=== PATIENT | female | born 1985 | race Caucasian/White ===

== ENCOUNTER → 2019-02-07 | Outpatient (CLI) | payer OTHER, SELFPAY ==
--- NOTE | 2019-02-07 13:01 | CT_ITS ---
STUDY: CT LEFT FOOT REASON FOR EXAM: Clubfoot. TECHNIQUE: Thin section transaxial imaging of the foot was obtained, with sagittal and coronal reconstructed images. Individualized dose optimization techniques were used for this CT. COMPARISON: None. FINDINGS: There is mild hypoplasia of the talar dome (sagittal reconstructions 18-22). The tibiotalar articular space is well-maintained. There is a small ossicle adjacent to a mildly hypoplastic medial malleolus (coronal reconstruction 53). There is a cyst in the medial body of the talus (coronal reconstruction 53) measuring 0.5 cm in diameter. There is hindfoot valgus deformity (coronal reconstruction 61). There is joint space narrowing of the posterior medial aspect of the posterior subtalar articulation (sagittal reconstructions 17-20). Normal visualized talonavicular, calcaneocuboid, tarsal and tarsometatarsal articulations. There is a notch-like deformity at the dorsal aspect of the medial cuneiform (sagittal reconstructions 15, 16). Normal metatarsi. Normal metatarsophalangeal joint of the great toe. Normal tibial and fibular sesamoid bones. Normal interphalangeal joint of the great toe. Normal visualized phalanges of the great toe. Normal second through fifth metatarsophalangeal joints. Normal visualized interphalangeal joints and visualized phalanges of the lesser toes. The soft tissue structures are unremarkable. 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 Hindfoot valgus deformity. Joint space narrowing of the posterior medial aspect of the posterior subtalar articulation. Electronically Signed: Anil Wilson MD at 10:00 EDT Tel , Service support ,
== END | disposition home or self-care (01) ==
LOC: CT 12:58
PROVIDERS: Referring Provider Orthopaedic Surgery; Visit Provider Orthopaedic Surgery
DX: Q66.89 Other specified congenital deformities of feet (principal)
CPT/HCPCS: 73700

== ENCOUNTER → 2020-09-22 16:41 | Outpatient (CLI) | payer OTHER, SELFPAY ==
[2016-02-05 18:52] VITALS: BMI 32.5
[2020-09-22 17:55] LABS: NATERA MAILED SPECIMEN
== END ==
DX: Z31.430 Encounter of female for testing for genetic disease carrier status for procreative management (principal)

== ENCOUNTER 2021-07-10 10:00 | Inpatient (IN) | payer OTHER, MEDICAID, SELFPAY ==
[2021-07-10] VITALS (18 sets, daily range): BP systolic 98–131; BP diastolic 51–79; PULSE 60–94; RESP 16–18; TEMP 36.1–36.7; O2SAT 94–98; BMI 40.0
--- NOTE | 2021-07-10 | PLAC_PTH ---
PATIENT: GABI JEFF LOC: WP U#:[id number] AGE/SX: 35/F ROOM: WP007 RE07/10/[address]: Dr. Latoya Maldonado MD : 1985 BED: 1 DIS: 07/13/2021 SPEC #: [id number] RECD: 07/13/21 08:44 STATUS: CHEVY REKelsie #: [id number] TANIA: 07/10/21 00:[address]: Latoya Maldonado DEPT: SURGICAL PATHOLOGY RECD BY: Sarwat Barfield ENTERED: 07/13/21 08:44 SP TYPE: PLACENTA OTHR DR: No Primary Care Phys Tissues: Placenta, NOS Procedures: Surgery Specimen Level V HEADER OPERATION: Primary section PRE-OP DIAGNOSIS: Twins TISSUE SUBMITTED: Placenta MICROSCOPIC DIAGNOSIS Dichorionic diamniotic twin placenta: Placenta designated A (383 gm): Umbilical cord ? trivascular with no inflammation. Peripheral membranes ? no pathologic change. Placental disc ? Mild Maria Ines-Jim change and intravillous congestion. Placenta designated B (386 gm): Umbilical cord ? trivascular with no inflammation. Peripheral membranes ? no pathologic change. Placental disc ? Mild Maria Ines-Jim change and intervillous congestion. AM:violetta 07/14/2021 MICROSCOPIC DESCRIPTION Slides are reviewed. GROSS DESCRIPTION SPECIMEN: TWIN PLACENTA / CLINICAL INFORMATION: A. Weight: A ? 2.16 kg; B ? 2.445 kg B. Gestational Age: 37 weeks C. Sex: A ? Male, B - Male Received is a twin placenta consisting of two placental discs, two membranous sacs and two umbilical cords. The placentas are not identified as A or B. One of the umbilical cords shows a clamp and designed placenta A. Dividing membranous septum is present predominantly on placenta A. PLACENTA A: (with clamp) PLACENTAL WEIGHT (POST FIXATION): 383 gm PLACENTAL DIMENSIONS: 20 x 15 x 2.5 cm PLACENTAL SHAPE: Usual ovoid PLACENTAL WEIGHT FOR GESTATIONAL AGE: Within 10-99th percentile. MEMBRANES - Present A. Insertion: Marginal B. Site of rupture from edge: Fragmented, distance of rupture cannot be assessed. C. Color of membrane: Hull-mobley D. Abnormalities: None UMBILICAL CORD - Present A. Color: Hull-mobley B. Insertion: Paracentral C. Length: 41 cm D. Diameter: 1.4 cm E. Number of vessels: Three F. Abnormalities: None PLACENTAL DISC - Present A. Color of surface: Hull-mobley B. surface abnormalities: None C. Maternal cotyledons: Intact with minimal tears D. Attached retro placental clot: No clot E. Cut surface: Dark red and spongy F. Lesions: None G. Separate clot: Absent PLACENTA B: PLACENTAL WEIGHT (POST FIXATION): 386 gm PLACENTAL DIMENSIONS: 18 x 18 x 2.5 cm PLACENTAL SHAPE: Usual ovoid PLACENTAL WEIGHT FOR GESTATIONAL AGE: Within 10-99th percentile. MEMBRANES - Present A. Insertion: Paracentral B. Site of rupture from edge: 9 cm from edge of placental disc C. Color of membrane: Hull-mobley D. Abnormalities: The membranes show focal area of whitish plaque. UMBILICAL CORD - Present A. Color: Hull-mobley B. Insertion: Marginal C. Length: 41 cm D. Diameter: 1.3 cm E. Number of vessels: Three F. Abnormalities: None PLACENTAL DISC - Present A. Color of surface: Hull-mobley B. surface abnormalities: None C. Maternal cotyledons: Intact with minimal tears D. Attached retro placental clot: No clot E. Cut surface: Dark red and spongy F. Lesions: None G. Separate clot: Absent SECTIONS SUBMITTED: 11 cassettes 1 - Dividing membranous septum, 2-6 - placenta A (2 - membrane roll, 3 - umbilical cord, end inked black, 4-6 - body of the placenta including maternal and surfaces), 7-11 - placenta B (7 - membrane roll, 8 - umbilical cord, end inked black, 9-11 - body of the placenta including maternal and surfaces). SJ:violetta 07/13/2021 TC:5 CPT: 40336 x2
[2021-07-10] MEDS: Acetaminophen 500 MG Tablet 1000 MG PO ×3 (10:54→22:44)
[2021-07-10] MEDS: Lactated Ringers 1,000 ML 999 ML IV (10:56)
[2021-07-10 11:11] LABS: Absolute Lymphocyte Count 1.94 X10^3/uL (0.83-4.51); Absolute Neutrophil Count 7.2 X10^3/uL (2.0-7.7); Basophil# 0.03 X10^3/uL; Basophil% 0.3 % (0-1); Eosinophil# 0.18 X10^3/uL; Eosinophils% 1.8 % (0-5); Hematocrit 34.7 % (37-47); Hemoglobin 12.1 g/dL (12.0-15.0); Lymphocyte # 1.94 X10^3/ul (0.83-4.51); Lymphocyte % 19.4 % (19-41); Mean Corp Hgb Conc 34.9 g/dL (32-36); Mean Corpuscular Hgb 30.2 pg (27.0-32.0); Mean Corpuscular Volume 86.5 fL (81-99); Mean Platelet Vol. 12.2 fl (6.2-12.0); Monocyte# 0.65 X10^3/uL; Monocyte% 6.5 % (0-10); NRBC Flagged by Analyzer 0 % (0-5); Neutrophil # 7.16 X10^3/uL (2.7-7.7); Neutrophil % 71.6 % (47-70); Platelet Count 174 K/mm3 (150-450); RBC Distribution Width CV 14.1 % (11.6-14.6); RBC Distribution Width SD 43.1 fl (35.1-43.9); Red Blood Count 4.01 M/mm3 (4.2-5.4)
[2021-07-10] MEDS: Lactated Ringers 1,000 ML 150 ML IV (11:54)
[2021-07-10] MEDS: Sodium Citrate/Citric Acid 30 ML UDC PO (11:54)
--- NOTE | 2021-07-10 12:18 | PCM.HP.OB ---
HPI - General General Date of Admission: 07/10/21 Date of Service: 07/10/21 Chief Complaint: twins, breech HPI Narrative GABI JEFF, is a 35-year-old 1 para 0 at 37+ weeks with EDC of 07/30/2021 who presents for primary section due to breech twins. She denies any vaginal bleeding or leaking of fluid. She is had good movement. is a fertility . She has dichorionic diamniotic twins. Growth has been normal. was complicated to date by hypothyroidism and maternal obesity and history of depression. Maternal Data Information Final HOLLY: 07/30/21 Gestational age: 37 05/22 [facility] Medical History (Updated 07/10/21 @ 12:[address] Latoya Maldonado MD) Anxiety Carpal tunnel syndrome Club foot Depression Thyroid disorder Home Medications aspirin [Aspir-81] 81 mg PO DAILY 07/10/21 [History Last Taken 07/07/21 12:00] levothyroxine [Synthroid] 25 mcg PO DAILY 07/10/21 [History Last Taken 07/09/21 08:00] [id number] [] 1 tab PO DAILY 07/10/21 [History Last Taken 07/09/21 23:00] Allergy/AdvReac Type Severity Reaction Status Date / Time naproxen AdvReac Hives Verified 07/10/21 10:17 Social History Smoking Status: Never smoker History Elective abortions Hx Para 0 Spontaneous abortions Hx # Term Pregnancies Ectopic pregnancies Hx # Pregnancies Multiple births # of living children ROS Constitutional Constitutional: Denies fatigue, fever(s) or malaise Eyes Eyes: Denies change in vision ENT HEENT: Denies dizziness or headache(s) Cardiovascular Cardiovascular: Denies chest pain, dyspnea or lightheadedness Respiratory/Chest Respiratory/Chest: Denies cough or dyspnea Gastrointestinal Gastrointestinal: Denies change in bowel habits Genitourinary Genitourinary: Denies burning urination or genital lesions Integumentary Integumentary: Denies rash Neurologic Neurologic: Denies confusion, dizziness, headache(s), numbness or weakness Vital Signs Vital Signs Vital Signs: 07/10/21 11:25 Temperature 97.0 F L Temperature Source Temporal Pulse Rate 88 Respiratory Rate 16 Blood Pressure 113/77 Blood Pressure Mean 89 Blood Pressure Source Monitor Blood Pressure Position Semi-Fowlers Blood Pressure Location Left Arm Pulse Ox 97 Oxygen Delivery Method Room Air Weight Weight: 122.9 kg Body Mass Index (BMI) 40.0 Physical Exam Const alert and no apparent distress General Appearance: cooperative HEENT normocephalic Resp normal respiratory effort Cardio regular rate GI soft to palpation GI Narrative: gravid, nontender, appropriate for gestational age Extremity no calf tenderness General Extremity: edema Skin no wounds Rashes: No rashes noted Psych activity/motor behavior normal Labs Labs Labs: Blood Type Pending Antibody Screen Pending Hct 34.7 % (37-47) L Hgb 12.1 g/dL (12.0-15.0) Assessment & Plan (1) Dichorionic diamniotic twin gestation: (2) 37 weeks gestation of : (3) Advanced maternal age (AMA) in : (4) Maternal obesity syndrome in third trimester: (5) BMI 40.0-44.9, adult: (6) Breech presentation of fetus: (7) Supervision of high risk in third trimester:
--- NOTE | 2021-07-10 12:51 | OP.PCM_ITS ---
Assessment & Plan (1) Supervision of high risk in third trimester: (2) Breech presentation of fetus: (3) BMI 40.0-44.9, adult: (4) Maternal obesity syndrome in third trimester: (5) Advanced maternal age (AMA) in : (6) 37 weeks gestation of : (7) Dichorionic diamniotic twin gestation: Maternal Data Information Final HOLLY: 07/30/21 Gestational age: 37 1/7 Details Operative Information Date of Procedure: 07/10/21 Pre-Operative Diagnosis: di/di twins, breech/breech, 37 weeks Post-Operative Diagnosis: same Classification: Scheduled Procedure Type: low transverse account executive sales representative #1: Cora Alarcon Type of Anesthesia: Spinal Anesthesiologist: Zeferino Lee Special Medications: durmamorph Antibiotic Given: Ancef 3 grams IV x1 Drain: Chavez to straight drain Estimated Blood Loss: 900 Fluids Replaced: 1000 Procedure Start Time: 12:25 Time of Delivery: 12:27 Findings Description of Procedure: The patient was taken to the operating room. She was prepped and draped in the dorsal supine position with a leftward tilt. A Pfannenstiel skin incision was made approximately 2 cm above the symphysis pubis and carried through to underlying layer fascia with blunt dissection. The fascia was incised incised in the midline and extended laterally with blunt dissection. The rectus muscles were in the midline and the peritoneum was entered bluntly. The peritoneal incision was stretched and the bladder blade was placed. The uterine incision was made in a low transverse fashion with the scalpel and extended superiorly and inferiorly with blunt dissection. The amniotic membranes were ruptured bluntly and clear amniotic fluid returned. The first baby's feet were brought out through the incision. The baby was turned back up. A towel was placed around the baby's abdomen. The arms were swept out individually. A finger was placed in the baby's mouth and with gentle fundal pressure the head was delivered easily. The mouth and nose were bulb suctioned as the cord was clamped and cut and the was handed off to waiting nursing staff. The second baby's feet were grasped and the amniotic membranes were ruptured for clear fluid. The feet were brought out through the incision and the baby was turned back up. A towel was placed around the baby's abdomen and arms were swept out individually and the head delivered with gentle fundal pressure and traction on the maxilla. The mouth and nares were bulb suction as cord was clamped and cut and the baby was handed off to the waiting nursing staff. The placenta was delivered with fundal massage and gentle traction in the standard fashion. The uterus was exteriorized and cleared of all clots and debris. The cervix was dilated with a ring forcep. The uterine incision was closed with #1 Vicryl in a running locked fashion. A second layer of the same suture was used in an imbricating fashion. The incision was examined and was found to be hemostatic. The uterus was placed back into the peritoneal cavity and hemostasis was again confirmed. The rectus muscles were examined and any bleeding was Bovie cauterized. The parietal peritoneum and rectus muscles were closed en bloc with an 0 Vicryl running suture. The surgical teams outer gloves were then changed. The rectus fascia was examined and any bleeding was Bovie cauterized and the rectus fascia was closed with #1 PDS suture in a running standard fashion. The subcutaneous tissue was examining and any bleeding was Bovie cauterized. The subcutaneous tissue was reapproximated with 3-0 Vicryl suture. The skin was closed in a subcuticular fashion by the RIDING INSTRUCTOR with me present in the labor and delivery suite. I performed the remainder of the procedure with assistance. All sponge, lap, and needle counts were correct. The patient was taken to her room for recovery in a stable condition. Amniotic Membrane Rupture Type: Artificial Amniotic Fluid Description: Clear Placental Delivery Description: Expressed Placenta Disposition: Sent to Pathology Cord Vessel Description: 3 Vessels Cord Entanglement: None Infant A Gender: Male (Zeferino 5lb 4 oz) (1 minute): 9 (5 minute): 9 Delayed Cord Clamping: Yes Complications Complications: none Baby B Information Amniotic Membrane Rupture Type: Artificial Presentation: Footling Breech Operative Information Mode of Delivery: Cord Vessel Description: 3 Vessels Cord Entanglement: None B gender: Male (Ernesto 5lb 10 oz delivery time 1229) (1 minute): 9 (5 minute): 9 Delayed Cord Clamping: No
[2021-07-10] MEDS: Oxytocin 30 units/NS 500 ml 30 UNITS/500 ML IV.SOLN 167 UNITS IV (13:34)
[2021-07-10] MEDS: 0.9% Saline Lock 10 ML Syringe IV ×2 (14:19→23:28)
[2021-07-10] MEDS: Ketorolac 30 MG/ML Syringe IV ×2 (14:19→23:28)
[2021-07-10 15:22] LABS: Pathology Specimen OB SEE PATHOLOGY REPORT
--- NOTE | 2021-07-10 19:41 | NURSING ---
this RN has reviewed and agrees with all charting by SN Brittanie
[2021-07-10] MEDS: Lactated Ringers 250 ML 999 ML IV (20:45)
[2021-07-10] MEDS: Lactated Ringers 1,000 ML 100 ML IV (20:55)
[2021-07-10] MEDS: Enoxaparin 40 MG/0.4 ML Syringe SC (23:38)
[2021-07-11] VITALS (7 sets, daily range): BP systolic 108–121; BP diastolic 52–69; PULSE 71–76; RESP 16–18; TEMP 36.3–37.2; O2SAT 94–97
[2021-07-11] MEDS: Ketorolac 30 MG/ML Syringe IV (05:02)
[2021-07-11] MEDS: Levothyroxine 25 MCG TABLET PO (05:02)
[2021-07-11] MEDS: Acetaminophen 500 MG Tablet 1000 MG PO ×4 (05:02→23:43)
[2021-07-11 05:20] LABS: Hematocrit 33.3 % (37-47); Hemoglobin 11.7 g/dL (12.0-15.0); Mean Corp Hgb Conc 35.1 g/dL (32-36); Mean Corpuscular Hgb 30.8 pg (27.0-32.0); Mean Corpuscular Volume 87.6 fL (81-99); Mean Platelet Vol. 11.5 fl (6.2-12.0); Platelet Count 155 K/mm3 (150-450); RBC Distribution Width CV 14.1 % (11.6-14.6); White Blood Count 13.4 K/mm3 (4.4-11.0)
[2021-07-11] MEDS: Enoxaparin 40 MG/0.4 ML Syringe SC (10:27)
[2021-07-11] MEDS: Senna/Docusate Sodium 1 Tablet PO (10:27)
--- NOTE | 2021-07-11 10:47 | PCM.PN.OB ---
Subjective Subjective Patient seen at bedside. Sitting in recliner chair. Reports minimal pain. Has voided without difficulty. Denies headache, dizziness, SOB or CP. twins with support from . Patient's mother at bedside and is support person. Objective Data Objective Data Vital Signs: Vital Signs Temp Pulse Resp BP Pulse Ox 97.8 F 75 16 108/52 L 94 07/11/21 08:12 07/11/21 08:12 07/11/21 08:12 07/11/21 08:12 07/11/21 08:12 Oxygen Delivery Method Room Air Weight: 270 lb 15.17 oz Body Mass Index (BMI) 40.0 Intake & Output: Intake and Output for Last 24 Hours 07/09/21 07/10/21 07/11/21 23:59 23:59 23:59 Intake Total 3557.5 / 3557.5 Output Total 750 / 750 200 / 200 Balance 2807.5 / 2807.5 -200 / -200 Lab / Micro Data Result Diagrams: 07/11/21 05:10 Labs: Laboratory Results - last 24 hr 07/10/21 10:50: WBC 10.0, RBC 4.01 L, Hgb 12.1, Hct 34.7 L, MCV 86.5, MCH 30.2, MCHC 34.9, RDW Std Deviation 43.1, RDW Coeff of Katalina 14.1, Plt Count 174, MPV 12.2 H, Immature Gran % (Auto) 0.400, Neut % (Auto) 71.6 H, Lymph % (Auto) 19.4, Hancock % (Auto) 6.5, Eos % (Auto) 1.8, Baso % (Auto) 0.3, Absolute Neuts (auto) 7.2, Absolute Lymphs (auto) 1.94, Nucleated RBC % 0 07/10/21 10:50: Blood Type O POSITIVE, Antibody Screen NEGATIVE 07/11/21 05:10: WBC 13.4 H, RBC 3.80 L, Hgb 11.7 L, Hct 33.3 L, MCV 87.6, MCH 30.8, MCHC 35.1, RDW Std Deviation 44.0 H, RDW Coeff of Katalina 14.1, Plt Count 155, MPV 11.5 ROS Eyes Eyes: Denies blurry vision, change in vision or spots in vision ENT HEENT: Denies dizziness or headache(s) Cardiovascular Cardiovascular: Denies abdominal pain, chest pain or dyspnea Respiratory/Chest Respiratory/Chest: Denies cough, dyspnea, shortness of breath at rest or shortness of breath with exertion Gastrointestinal Gastrointestinal: Denies abdominal pain, diarrhea or vomiting Genitourinary Genitourinary: Denies change in urinary stream, difficulty urinating or dysuria Musculoskeletal Musculoskeletal: Reports none Integumentary Integumentary: Denies rash Neurologic Neurologic: Denies dizziness, headache(s), memory loss or weakness Physical Exam Narrative Dressing is dry and intact Const alert and no apparent distress General Appearance: cooperative and comfortable Exam Limitations: no limitations HEENT normocephalic Eyes General Eye: normal appearance of both eyes Neck full ROM General: normal visual inspection Chest Chest: symmetrical chest wall rise Resp normal respiratory effort and normal air movement Effort and Inspection: symmetric chest movement Cardio regular rate and regular rhythm GI normal to inspection, nondistended, normoactive bowel sounds Back/Spine normal ROM Extremity no calf tenderness Extremity Narrative: Bilateral 2+ pitting edema in ankles and feet Skin no rashes or lesions noted Neuro CN's II-XII intact bilaterally Psych mental status grossly normal Assessment & Plan (1) BMI 40.0-44.9, adult: (2) Dichorionic diamniotic twin gestation: QUALIFIERS: Trimester: third trimester Qualified Code(s): O30.043 - Twin , dichorionic/diamniotic, third trimester (3) Status post primary low transverse section: (4) Mother currently breast-feeding: PLAN: PO #1 Primary section- Di/Di twins Pain control Routine care Increase ambulation today support Anticipate discharge home tomorrow
[2021-07-11] MEDS: Ibuprofen 600 MG Tablet PO ×2 (14:01→21:09)
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
[2021-07-12 02:15] VITALS: BP 121/73; PULSE 91; RESP 16; TEMP 36.2
[2021-07-12] MEDS: Ibuprofen 600 MG Tablet PO ×4 (04:11→23:00)
[2021-07-12] MEDS: Acetaminophen 500 MG Tablet 1000 MG PO ×4 (05:40→22:59)
[2021-07-12] MEDS: Levothyroxine 25 MCG TABLET PO (05:40)
--- NOTE | 2021-07-12 07:53 | PCM.PN.OB ---
Subjective Subjective Patient seen at bedside. Difficulty with both infants and started supplementing with formula and pumping. Patient is working with department. Difficulty sleeping. Pain is controlled. Ambulating and voiding without difficulty. Lochia minimal. Denies any SOB, CP, headache or dizziness. Desires discharge home tomorrow. Objective Data Objective Data Vital Signs: Vital Signs Temp Pulse Resp BP Pulse Ox 97.2 F L 91 16 121/73 H 95 07/12/21 02:15 07/12/21 02:15 07/12/21 02:15 07/12/21 02:15 07/11/21 14:07 Oxygen Delivery Method Room Air Weight: 270 lb 15.17 oz Body Mass Index (BMI) 40.0 Intake & Output: Intake and Output for Last 24 Hours 07/10/21 07/11/21 07/12/21 23:59 23:59 23:59 Intake Total 3557.5 / 3557.5 Output Total 750 / 750 200 / 200 Balance 2807.5 / 2807.5 -200 / -200 Lab / Micro Data Result Diagrams: 07/11/21 05:10 ROS Eyes Eyes: Denies blurry vision, change in vision or spots in vision ENT HEENT: Denies dizziness or headache(s) Cardiovascular Cardiovascular: Denies abdominal pain, chest pain or dyspnea Respiratory/Chest Respiratory/Chest: Denies cough, dyspnea, shortness of breath at rest or shortness of breath with exertion Gastrointestinal Gastrointestinal: Denies abdominal pain, diarrhea or vomiting Genitourinary Genitourinary: Denies change in urinary stream, difficulty urinating or dysuria Musculoskeletal Musculoskeletal: Reports none Integumentary Integumentary: Denies rash Neurologic Neurologic: Denies dizziness, headache(s), memory loss or weakness Physical Exam Narrative Dressing is dry and intact Const alert and no apparent distress General Appearance: cooperative and comfortable Exam Limitations: no limitations HEENT normocephalic Eyes General Eye: normal appearance of both eyes Neck full ROM General: normal visual inspection Chest Chest: symmetrical chest wall rise Resp normal respiratory effort and normal air movement Effort and Inspection: symmetric chest movement Auscultation: clear to auscultation bilaterally Cardio regular rate and regular rhythm GI normal to inspection, nondistended, normoactive bowel sounds Back/Spine normal ROM Extremity full ROM and no calf tenderness General Extremity: normal exam except as noted Skin no rashes or lesions noted Neuro CN's II-XII intact bilaterally Psych mental status grossly normal Assessment & Plan (1) Mother currently breast-feeding: (2) Status post primary low transverse section: (3) BMI 40.0-44.9, adult: (4) Dichorionic diamniotic twin gestation: QUALIFIERS: Trimester: third trimester Qualified Code(s): O30.043 - Twin , dichorionic/diamniotic, third trimester PLAN: PO #2 Primary C/S- Di/Di twins support Pain control Encourage ambulation Anticipate discharge home tomorrow
[2021-07-12 08:40] VITALS: BP 120/71; PULSE 86; RESP 18; TEMP 36.7; O2SAT 98
[2021-07-12] MEDS: Enoxaparin 40 MG/0.4 ML Syringe SC (10:40)
[2021-07-12] MEDS: Senna/Docusate Sodium 1 Tablet PO (10:42)
[2021-07-12 13:13] VITALS: BP 119/71; PULSE 82; RESP 18; TEMP 36.6; O2SAT 97
--- NOTE | 2021-07-12 15:22 | NURSING ---
Esperanza has been doing well at doing care. She has been working on hard on trying to meet their needs as needed. She switched from putting babes to breast, to now pumping and feeding pumped milk plus similac. She is very attentive about pumping and caring for pump, as well as what to do with pumped milk. She is trying to focus on when to feed infants, and had some difficulty today, as we realized that some nurses are writing when 's fed last, and some are writing when they are do, which is confusing for her. We talked about what works best for her, and she wants the time that they are due to eat written down, and I also wrote down a schedule for her to pump, which should allow for time to ready for feed. She was able to complete her paperwork today, as well as the CPR video- she had not had time to focus on that previously. Pt. was able to dress and comb her hair (which she did tuesday evening), although I believe she hasn't had the chance to shower yet. She is working to try to figure out what works for her and her mom. I have encouraged her to walk in halls as hadn't passed gas yet. She is not doing much walking, but has since reported passing gas. Her mother remains with her as her support person, but her mother tends to fall asleep while holding the baby's, and the babes need to be moved from her arms back to the cribs. I am not sure how much support Esperanza has beyond her parents, as well as a brother that has been in to visit. She reports that her mother will be babysitting for her when she returns to work.
[2021-07-12 21:20] VITALS: BP 131/65; PULSE 84; RESP 18; TEMP 36.2
[2021-07-13 01:35] VITALS: BP 117/54; PULSE 74; RESP 18; TEMP 36.2; O2SAT 96
[2021-07-13] MEDS: Acetaminophen 500 MG Tablet 1000 MG PO ×2 (05:53→12:06)
[2021-07-13] MEDS: Levothyroxine 25 MCG TABLET PO (05:53)
[2021-07-13] MEDS: Ibuprofen 600 MG Tablet PO ×2 (05:53→12:06)
[2021-07-13 08:00] VITALS: BP 132/69; PULSE 87; RESP 24; TEMP 36.2; O2SAT 96
--- NOTE | 2021-07-13 08:06 | PN.OBGYN_ITS ---
Subjective Subjective Doing well per patient and nursing staff. Ambulating and taking PO without difficulty. Voiding and passing flatus. Pain controlled. , services for assistance. Denies headache, visual changes, chest pain, shortness of breath, leg pain or increased bleeding. Lochia normal.Planning D/C home today. Objective Data Objective Data Vital Signs: Vital Signs Temp Pulse Resp BP Pulse Ox 97.1 F L 74 18 117/54 L 96 07/13/21 01:35 07/13/21 01:35 07/13/21 01:35 07/13/21 01:35 07/13/21 01:35 Oxygen Delivery Method Room Air Weight: 270 lb 15.17 oz Body Mass Index (BMI) 40.0 Intake & Output: Intake and Output for Last 24 Hours 07/11/21 07/12/21 07/13/21 23:59 23:59 23:59 Output Total 200 / 200 Balance -200 / -200 Lab / Micro Data Result Diagrams: 07/11/21 05:10 ROS Constitutional Constitutional: Reports systems reviewed and no addt'l complaints, except as documented; Denies headache(s) Eyes Eyes: Denies acute decrease in peripheral vision, blurry vision or change in vision ENT HEENT: Reports systems reviewed and no addt'l complaints, except as documented Cardiovascular Cardiovascular: Denies chest pain or dizziness Respiratory/Chest Respiratory/Chest: Denies cough, dyspnea, dyspnea on exertion, shortness of breath at rest or shortness of breath with exertion Gastrointestinal Gastrointestinal: Denies abdominal pain, diarrhea, nausea or vomiting Genitourinary Genitourinary: Reports movement; Denies abdominal discomfort Musculoskeletal Musculoskeletal: Denies limited range of motion Integumentary Integumentary: Reports systems reviewed and no addt'l complaints, except as documented Neurologic Neurologic: Reports systems reviewed and no addt'l complaints, except as doc umented Psychiatric Psychiatric: Reports systems reviewed and no addt'l complaints, except as documented Endocrine Endocrinology: Reports systems reviewed and no addt'l complaints, except as documented Hematologic/Lymphatic Hematologic/Lymphatic: Reports systems reviewed and no addt'l complaints, except as documented Allergic/Immunologic Allergic/Immunologic: Reports systems reviewed and no addt'l complaints, except as documented Physical Exam Const alert and oriented x3 General Appearance: cooperative Orientation / Consciousness: awake, oriented to person, oriented to place and oriented to time Exam Limitations: no limitations HEENT normocephalic Head and Scalp: normal to inspection, normocephalic and atraumatic Face and Sinus: normal facial exam Eyes General Eye: normal appearance of both eyes Neck full ROM Chest Chest: symmetrical chest wall rise Resp normal respiratory effort and normal air movement Auscultation: clear to auscultation bilaterally Cardio regular rate, regular rhythm, S1 normal heart sound, S2 normal heart sound, no murmurs, no rub, no gallops and no clicks GI normal to inspection, nondistended, normoactive bowel sounds and non-tender GI Narrative: fundus firm 3 below U. Dressing dry and intact appearance of the vagina normal Bladder / Kidney Exam: no CVA tenderness Back/Spine normal ROM Extremity normal to inspection and full ROM Skin no rashes or lesions noted Neuro oriented x3, CN's II-XII intact bilaterally and moves all extremities Sensorium / Orientation: awake, alert and oriented to person Motor Exam: clonus absent Deep Tendon Reflexes: Rt Patellar (L4): 2+ and Lt Patellar (L4): 2+ Assessment & Plan (1) Mother currently breast-feeding: (2) Status post primary low transverse section: (3) BMI 40.0-44.9, adult: PLAN: 1) Routine postoperative care 2) Breastfeedng support 3) Pain management 4) Follow up in 1 week for incision check and 6 week for PP visit 5) D/C home today
--- NOTE | 2021-07-13 08:44 | PCM.DC.SUM ---
Providers Date of Admission: 07/10/21 Primary Care Physician: Lakisha Primary Care Phys Reason For Visit: PRIMARY /TWINS Diagnosis Discharge Diagnosis (1) Mother currently breast-feeding: Status: Acute Code(s): Z39.1 - Encounter for care and examination of lactating mother (2) Status post primary low transverse section: Status: Acute Code(s): Z98.891 - History of uterine scar from previous surgery (3) BMI 40.0-44.9, adult: Status: Acute Code(s): Z68.41 - Body mass index [BMI] 40.0-44.9, adult Medications at Discharge Home Medications levothyroxine [Synthroid] 25 mcg PO DAILY 07/10/21 [id number] 1 tab PO DAILY 07/10/21 acetaminophen 1,000 mg PO Q6H #0 tab 07/13/21 ibuprofen 600 mg PO Q6H #30 tab 07/13/21 oxycodone 5 mg PO Q6H PRN 7 Days #10 tab 07/13/21 sennosides-docusate sodium [Stool Softener-Stimulant Laxat] 1 tab-cap PO DAILY #30 tab 07/13/21 Hospital Course Operations section Summary of Care Provided Hospital Course: LTCS for twin gestation on 07/10/21. Discharged home on postoperative day #3. Uncomplicated postoperative course and hospital stay Weight / BMI Weight Weight: 270 lb 15.17 oz Body Mass Index (BMI) 40.0 ABG / Lab / Microbiology Data Result Diagrams: 07/11/21 05:10 Meaningful Use Info Meaningful Use Diagnoses (Choose all that apply): None applicable Discharge Plan Admission Admit Date/Time: 07/10/21 10:00 Primary Reason for Your Visit: Low Transverse Section, Twins Attending Provider: Latoya Maldonado Primary Care Provider: Care Physician,No Primary Instructions Patient Instructions: Caring for Twins, Breastfeed Holds, : Latch On Steps Discharge Orders/Prescriptions Prescriptions: New acetaminophen 500 mg Tablet 1,000 mg PO Q6H Qty: 0 RF: 0 ibuprofen 600 mg Tablet 600 mg PO Q6H Qty: 30 RF: 0 sennosides-docusate sodium [Stool Softener-Stimulant Laxat] 8.6-50 mg Tablet 1 tab-cap PO DAILY Qty: 30 RF: 0 oxycodone 5 mg tablet 5 mg PO Q6H PRN (Reason: pain) 7 Days Qty: 10 RF: 0 Continued [id number] 1 mg Tablet 1 tab PO DAILY RF: 0 levothyroxine [Synthroid] 25 mcg Tablet 25 mcg PO DAILY RF: 0 Discontinued aspirin [Aspir-81] 81 mg Tablet,Delayed Release (Dr/Ec) 81 mg PO DAILY RF: 0 Referrals / Follow Up: Latoya Maldonado MD [STAFF PHYSICIAN] - (1 week post section for incision check and 6 weeks for visit) Care Physician,No Primary [Primary Care Provider] - Disposition Disposition (needs filled in before D/C Order can be placed): Home, Self Care
[2021-07-13] MEDS: Enoxaparin 40 MG/0.4 ML Syringe SC (10:27)
[2021-07-13] MEDS: Senna/Docusate Sodium 1 Tablet PO (10:30)
[2021-07-29 08:18] LABS: Pathology Specimen OB SEE PATHOLOGY REPORT
== END 2021-07-13 13:15 | disposition home or self-care (01) | DRG 788 ==
PROVIDERS: Admitting Provider Obstetrics & Gynecology; Visit Provider Obstetrics & Gynecology
PROC: 10D00Z1 Extraction of Products of Conception, Low, Open Approach (ICD-10-PCS; CPT 59514; principal; 2021-07-10 11:45)
DX: O32.8XX2 Maternal care for other malpresentation of fetus, fetus 2 (principal); Z37.2 Twins, both liveborn; O99.213 Obesity complicating pregnancy, third trimester; E66.9 Obesity, unspecified; O99.284 Endocrine, nutritional and metabolic diseases complicating childbirth; E03.9 Hypothyroidism, unspecified; O30.043 Twin pregnancy, dichorionic/diamniotic, third trimester; Z79.82 Long term (current) use of aspirin; Z3A.37 37 weeks gestation of pregnancy; Z79.890 Hormone replacement therapy
CPT/HCPCS: 59050; 85025; 85027; 86850; 86900; 86901; 88307; 99218; J7120; A4216; G0378; J2405